=== PATIENT | male | born 1980 | race Two or more races ===

== ENCOUNTER 2018-02-03 16:47 | Emergency (ER) | payer OTHER ==
[~2018-02-03] VITALS: Ht 167.6 cm; Wt 72.6 kg
--- NOTE | 2018-02-03 17:37 | NUR ---
PT WHHELED TO ED BED 12 FROM THE WAITING ROOM
[2018-02-03] MEDS ORDERED: HYDROCODONE/APAP 10/325MG 1 EA TABLET ONE (17:57)
[2018-02-03] MEDS ORDERED: HYDROCODONE/APAP 10/325MG 1 EA TABLET PO ONE (18:00)
--- NOTE | 2018-02-03 18:00 | NUR ---
ELIO AT BS.
--- NOTE | 2018-02-03 19:18 | NUR ---
REPORT GIVEN TO STEPHANIE YEE FOR [facility].
[2018-02-03] MEDS ORDERED: MORPHINE SULFATE INJ 2 MG/ML DISP.SYRIN IV ONE (19:30)
[2018-02-03] MEDS ORDERED: CEFAZOLIN 1 GM in IV D5W 50 ML IV ONE (19:30)
--- NOTE | 2018-02-03 19:30 | NUR ---
CALLED PHARMACY FOR [facility].
--- NOTE | 2018-02-03 19:38 | NUR ---
STARTED 20G IV LAC. BLOOD DRAWN AND SENT TO LAB.
[2018-02-03] MEDS ORDERED: MORPHINE SULFATE INJ 4 MG/ML DISP.SYRIN ONE (19:45)
[2018-02-03 19:51] LABS: BASOPHILS % (AUTO) 0.2 % (0.0-2.0); EOSINOPHILS % (AUTO) 0.5 % (0.0-6.0); HEMATOCRIT 46 % (39-51); HEMOGLOBIN 16.1 g/dL (13.5-17.5); LYMPHOCYTES # (AUTO) 1.3 /CMM (0.8-4.8); LYMPHOCYTES % (AUTO) 10.1 % (20.0-44.0); MEAN CORPUSCULAR HEMOGLOBIN 30 PG (26.0-33.0); MEAN CORPUSCULAR HGB CONC 35 g/dl (31.0-36.0); MEAN CORPUSCULAR VOLUME 88 fL (80-96); MONOCYTES # (AUTO) 0.8 /CMM (0.1-1.30); MONOCYTES % (AUTO) 6.1 % (2.0-12.0); NEUTROPHILS # (AUTO) 10.8 /CMM (1.8-8.9); NEUTROPHILS % (AUTO) 83.1 % (43.0-81.0); PLATELET COUNT (AUTO) 278 /CMM (150-450); RDW COEFFICIENT OF VARIATION 12.1 (11.5-15.0)
[2018-02-03 19:58] LABS: CALCIUM, SERUM 9.1 mg/dL (8.5-10.1); CREATININE 1.1 mg/dL (0.6-1.3); POTASSIUM 4.2 mmol/L (3.5-5.1)
--- NOTE | 2018-02-03 20:27 | NUR ---
[facility]-- HE STATED THE PHYSICIAN SPOKE WITH THE ORTHOPEDIC DR AND THEY ARE CURRENTLY WAITING TO SEE WHAT THE ORTHOPEDIC DR WOULD LIKE TO DO-- HE WILL CALL BACK WITH AN UPDATE.
[2018-02-03] MEDS ORDERED: ONDANSETRON HCL/PF 4 MG/2 ML VIAL ONE (21:27)
[2018-02-03] MEDS ORDERED: ONDANSETRON HCL/PF 4 MG/2 ML VIAL IV ONE (21:30)
--- NOTE | 2018-02-03 21:52 | NUR ---
Patient discharged to home in stable condition. Written and verbal after care instructions given. Patient verbalizes understanding of instruction AND RX. PT AMBULATED OUT WITH CRUTCHES.
--- NOTE | 2018-02-03 21:52 | NUR ---
Crutches dispensed. Pt instructed on proper use of crutches. Patient able to demonstrate correct use of crutches. IV removed. Catheter intact and site benign. Pressure and 4x4 applied to site. No bleeding noted.Patient discharged to home in stable condition. Written and verbal after care instructions given. Patient verbalizes understanding of instruction.
[2018-02-03 22:02] VITALS: BP 62/124
== END 2018-02-03 21:53 | disposition home or self-care (01) ==
LOC: ER 16:49
DX: S92.311B Displaced fracture of first metatarsal bone, right foot, initial encounter for open fracture (principal); S92.341B Displaced fracture of fourth metatarsal bone, right foot, initial encounter for open fracture; S92.321A Displaced fracture of second metatarsal bone, right foot, initial encounter for closed fracture; S92.331A Displaced fracture of third metatarsal bone, right foot, initial encounter for closed fracture; V98.8XXA Other specified transport accidents, initial encounter; Y93.89 Activity, other specified; Y92.89 Other specified places as the place of occurrence of the external cause; Y99.8 Other external cause status
CPT/HCPCS: 36415; 73564-TC; 73610-TC; 73630-TC; 80048-TC; 85025-TC; A4217; A4606; J0690; J2270; J2405; J7060; Z7610